=== PATIENT | female | born 1985 | race Caucasian/White ===

== ENCOUNTER 2019-02-01 09:25 | Emergency (ER) | payer BC ==
[2019-02-01 09:35] VITALS: BP 102/63
--- NOTE | 2019-02-01 10:22 | UC ---
Throat Pain/Nasal Damian HPI - HPI Summary HPI Summary: 33-year-old female with a sore throat and fever over the past 3 days. She states the fever broke yesterday although she continues to have a sore throat. Her 1-year-old child had similar symptoms a few days ago as well. - History of Current Complaint Chief Complaint: UCGeneralIllness Stated Complaint: SORE THROAT Time Seen by Provider: 02/01/19 09:59 Hx Obtained From: Patient Hx Last Menstrual Period: Now ?: No Onset/Duration: Gradual Onset Severity: Mild Pain Intensity: 7 Cough: None Associated Signs & Symptoms: Positive: Fever - Allergies/Home Medications Allergies/Adverse Reactions: Allergies Allergy/AdvReac Type Severity Reaction Status Date / Time No Known Allergies Allergy Verified 02/01/19 09:35 Home Medications: Home Medications NK [No Home Medications Reported] 02/01/19 [History Confirmed 02/01/19] PMH/Surg Hx/FS Hx/Imm Hx Previously Healthy: Yes - Surgical History Surgical History: Yes Surgery Procedure, Year, and Place: Csection - Family History Known Family History: Positive: Non-Contributory - Social History Occupation: Employed Full-time Alcohol Use: Rare Substance Use Type: None Smoking Status (MU): Never Smoked Tobacco Review of Systems All Other Systems Reviewed And Are Negative: Yes Constitutional: Positive: Fever - Fever broke one day ago. ENT: Positive: Sore Throat Is Patient Immunocompromised?: No Physical Exam Triage Information Reviewed: Yes Appearance: Well-Appearing, No Pain Distress, Well-Nourished Vital Signs: Initial Vital Signs Temp 98.4 F 02/01/19 09:31 Pulse 90 02/01/19 09:31 Resp 20 02/01/19 09:31 BP 102/63 02/01/19 09:31 Pulse Ox 98 02/01/19 09:31 Vital Signs Reviewed: No Eyes: Positive: Conjunctiva Clear ENT: Positive: Hearing grossly normal, Pharyngeal erythema - Very minimal pharyngeal erythema., TMs normal, Uvula midline Neck: Positive: Supple, Nontender, No Lymphadenopathy Respiratory: Positive: Lungs clear, Normal breath sounds, No respiratory distress, No accessory muscle use Cardiovascular: Positive: RRR, No Murmur, Pulses Normal, Brisk Capillary Refill Abdomen Description: Positive: Nontender, No Organomegaly, Soft. Negative: CVA Tenderness (R), CVA Tenderness (L), Hepatomegaly, Splenomegaly Bowel Sounds: Positive: Present Musculoskeletal Exam: Normal Neurological Exam: Normal Psychological Exam: Normal Skin Exam: Normal Throat Pain/Nasal Course/Dx - Course Course Of Treatment: Rapid strep test negative - Differential Dx/Diagnosis Provider Diagnosis: Pharyngitis Discharge ED - Sign-Out/Discharge Documenting (check all that apply): Patient Departure All imaging exams completed and their final reports reviewed: No Studies - Discharge Plan Condition: Good Disposition: HOME Patient Education Materials: Pharyngitis (ED) Referrals: No Primary Care Phys,NOPCP [Primary Care Provider] - [facility] [Outside] Additional Instructions: Increase fluids, warm saltwater gargles, throat lozenges may take Tylenol every 4 hours and Motrin every 8 hours. [facility]up [facility] or your primary care provider if no improvement in 3 or 4 days. - Billing Disposition and Condition Condition: GOOD Disposition: Home
== END 2019-02-01 10:24 | disposition home or self-care (01) ==
LOC: UCEAST 09:25
DX: J02.9 Acute pharyngitis, unspecified (principal)
CPT/HCPCS: 87651; 99201; G0463

== ENCOUNTER 2021-12-20 06:08 | Inpatient (IN) ==
[~2021-12-20 06:08] MED LIST: Buffered Lidocaine 1% SYRIN 1 ml INTRADERM ONE; Lactated Ringers 1000 ml BAG 1,000 ML IV SCH
[2021-12-20 06:58] LABS: Hematocrit 38 % (35-47); Hemoglobin 13.4 g/dL (12.0-16.0); Mean Corpuscular HGB Conc 36 g/dL (31-36); Mean Corpuscular Hemoglobin 32 pg (27-31); Mean Corpuscular Volume 90 fL (80-97); Mean Platelet Volume 7.3 fL (7.4-10.4); Platelet Count 204 10^3/uL (150-450); Red Blood Count 4.18 10^6 /uL (3.70-4.87); Red Cell Distribution Width 15 % (10-15); White Blood Count 9.7 10^3/uL (3.5-10.8)
[2021-12-20] MEDS ORDERED: Lactated Ringers 1000 ml BAG 1,000 ML IV ONE ×2 (08:03→13:30)
[2021-12-20] MEDS: Oxytocin in LR 20,000 MILLI.UNIT/1,000 ML BAG IV SCH ×2 (08:52→21:38)
[2021-12-20] MEDS ORDERED: Lactated Ringers 1000 ml BAG 1,000 ML IV SCH ×3 (09:00→19:00)
[2021-12-20 09:20] LABS: Urine Benzodiazepine Screen None Detected (None Detect); Urine Opiates Screen None Detected (None Detect)
[2021-12-20] MEDS ORDERED: OBEPIDURAL (200 ML) 200 ML EPIDURAL ONE (12:51)
[2021-12-20] MEDS ORDERED: Lactated Ringers 1000 ml BAG 500 ML IV PRN (13:30)
[2021-12-20] MEDS ORDERED: Phenylephrine 40 mcg/mL 10mL (400mcg) SYRINGE IV PUSH PRN (13:30)
[2021-12-20] MEDS ORDERED: Sodium Citrate/Citric Acid LIQ 15 ML UDC PO PRN (13:30)
[2021-12-20] MEDS ORDERED: OBEPIDURAL (200 ML) 200 ML EPIDURAL SCH (14:00)
[2021-12-20 15:47] LABS: Urine Appearance Clear; Urine Bilirubin Negative (Negative); Urine Blood Negative (Negative); Urine Color Yellow; Urine Glucose Negative (Negative); Urine Ketones 4+ (>=160mg/dL) (Negative); Urine Nitrite Negative (Negative); Urine Protein Negative (Negative); Urine Specific Gravity 1.019 (1.002-1.030); Urine Urobilinogen 0.2 (Negative) (Negative)
[2021-12-20] MEDS ORDERED: Methylergonovine 0.2 mg AMPULE 1 ml AMP ONE (18:18)
[2021-12-20] MEDS ORDERED: Dibucaine 1% OINT 28.35 GM TUBE PR PRN (18:47)
[2021-12-20] MEDS ORDERED: Witch Hazel PAD JAR TOPICAL PRN (18:47)
[2021-12-20] MEDS ORDERED: Glycerin ADULT 2.4 gm SUPP PR PRN (18:47)
[2021-12-20] MEDS ORDERED: Methylergonovine 0.2 mg AMPULE 1 ml AMP IM ONE (18:47)
[2021-12-20] MEDS ORDERED: Oxytocin in LR 20,000 MILLI.UNIT/1,000 ML BAG IV SCH (19:00)
[2021-12-20] MEDS ORDERED: ceFAZolin 2 GM in NS PREMIX 2 GM/100 ML BAG IVPB ONE (19:20)
[2021-12-20] MEDS ORDERED: Ondansetron 4 mg VIAL 2 MG/ML 2 ml VIAL IV PRN (19:37)
[2021-12-20] MEDS ORDERED: ceFAZolin 2 GM PREMIX 2 GM/50 ML BAG IVPB ONE (19:40)
[2021-12-20 20:23] LABS: ABS Lymphocytes 0.9 10^3/ul (1.0-4.8); ABS Monocytes 0.9 10^3/ul (0-0.8); ABS Neutrophils 15.7 10^3/ul (1.5-7.7); Hematocrit 36 % (35-47); Hemoglobin 11.7 g/dL (12.0-16.0); Lymphocyte % 4.9 %; Mean Corpuscular HGB Conc 33 g/dL (31-36); Mean Corpuscular Hemoglobin 30 pg (27-31); Mean Corpuscular Volume 90 fL (80-97); Mean Platelet Volume 7.2 fL (7.4-10.4); Platelet Count 195 10^3/uL (150-450); Red Blood Count 3.96 10^6 /uL (3.70-4.87); Red Cell Distribution Width 15 % (10-15); White Blood Count 17.6 10^3/uL (3.5-10.8)
[2021-12-20] MEDS ORDERED: Lidocaine 1% VIAL 10 MG/ML VIAL ONE (21:52)
[2021-12-21 06:43] LABS: ABS Lymphocytes 1.7 10^3/ul (1.0-4.8); ABS Neutrophils 10.4 10^3/ul (1.5-7.7); Eosinophil % 0.3 %; Hematocrit 29 % (35-47); Hemoglobin 10.4 g/dL (12.0-16.0); Lymphocyte % 12.6 %; Mean Corpuscular HGB Conc 36 g/dL (31-36); Mean Corpuscular Hemoglobin 33 pg (27-31); Mean Corpuscular Volume 90 fL (80-97); Mean Platelet Volume 7.1 fL (7.4-10.4); Platelet Count 170 10^3/uL (150-450); Red Blood Count 3.22 10^6 /uL (3.70-4.87); Red Cell Distribution Width 15 % (10-15); White Blood Count 13.1 10^3/uL (3.5-10.8)
[2021-12-22 08:51] VITALS: BP 112/69
== END 2021-12-22 12:32 | disposition home or self-care (01) | DRG 560 ==
LOC: EDACCT# → MCHOB 06:08
PROVIDERS: ADMIT Obstetrics & Gynecology; ATTEND Obstetrics & Gynecology